=== PATIENT | female | born 1955 | race Caucasian/White ===

== ENCOUNTER → 2024-09-04 07:47 | Outpatient (REF) | payer MEDICARE, OTHER, SELFPAY | LOC: HWWDC 07:47 | PROVIDERS: ATTENDING PHYSICIAN Obstetrics & Gynecology Gynecology; FAMILY PHYSICIAN Student in an Organized Health Care Education/Training Program | DX: Z12.31 Encounter for screening mammogram for malignant neoplasm of breast (principal) | CPT/HCPCS: 77063; 77067 ==

== ENCOUNTER → 2024-11-06 10:26 | Outpatient (REF) | payer MEDICARE, OTHER, SELFPAY ==
[2024-11-06 12:37] LABS: % Basophils 0.3 % (0-2); % Eosinophils 0.8 % (0-6); % Immature Granulocytes 0.2 % (0-0.5); % Lymphocytes 21.9 % (20.5-51.1); % Monocytes 7.9 % (1.7-9.3); % Neutrophils 68.9 % (42.2-75.2); Absolute Eosinophils 0.1 10^3/uL (0-0.7); Absolute Lymphocytes 1.4 10^3/uL (1.2-3.4); Absolute Monocytes 0.5 10^3/uL (0.1-0.6); Absolute Neutrophils 4.5 10^3/uL (1.4-6.5); Hematocrit 43.1 % (37.0-47.0); Hemoglobin 14.4 g/dL (12.0-16.0); Mean Corp Hgb Conc. 33.4 g/dL (33.0-37.0); Mean Corpuscular Volume 92.9 fL (81.0-99.0); Nucleated Red Blood Cells % 0 %; Platelet Count 283 10^3/uL (130-400); Red Blood Cell Count 4.64 10^6/uL (4.20-5.40); Red Cell Dist. Width 11.9 % (11.5-14.5); White Blood Cell Count 6.5 10^3/uL (4.8-10.8)
[2024-11-06 13:01] LABS: ALT (SGPT) 20 U/L (0-35); AST (SGOT) 22 U/L (14-36); Albumin 4.4 g/dl (3.5-5.0); Alkaline Phosphatase 89 U/L (38-126); Blood Urea Nitrogen 13 mg/dl (7-17); Calcium 9.8 mg/dl (8.4-10.2); Carbon Dioxide 28 mmol/L (22-30); Chloride 103 mmol/L (98-107); Glucose 107 mg/dl (70-99); HDL Cholesterol 70 mg/dl; LDL Cholesterol, Calculated 105 mg/dl; Potassium 4.4 mmol/L (3.5-5.1); Sodium 141 mmol/L (135-145); Total Bilirubin 0.4 mg/dl (0.2-1.3); Total Cholesterol 193 mg/dl (50-199); Total Protein 7.4 g/dl (6.3-8.2); Triglyceride 90 mg/dl (10-149); Very Low Density Lipoprotein 18 mg/dl (0-30); eGFR > 60.00
[2024-11-06 13:32] LABS: TSH Reflex To Free T4 1.16 uIU/ml (0.47-4.68)
[2024-11-06 14:03] LABS: Erythrocyte Sed Rate 20 mm/hour (0-20)
[2024-11-06 14:45] LABS: Glycohemoglobin (HgbA1c) 5.9 % (4.0-5.6)
[2024-11-08 14:05] LABS: Rheumatoid Agglutinin Less Than 10 IU (<10 IU)
[2024-11-08 16:33] LABS: Lyme Antibody Screen, EIA Negative (Negative)
[2024-11-09 00:05] LABS: ANA, IgG Reflex to HEp-2 None Detected (None Detected)
[2024-11-09 01:28] LABS: CCP Antibody IgG/IgA 123 Units (0-19)
== END ==
LOC: HWRAD 10:26
PROVIDERS: ATTENDING PHYSICIAN Student in an Organized Health Care Education/Training Program; FAMILY PHYSICIAN Student in an Organized Health Care Education/Training Program
DX: M25.40 Effusion, unspecified joint (principal); M79.641 Pain in right hand; M79.642 Pain in left hand; M79.671 Pain in right foot; M79.672 Pain in left foot; Z82.61 Family history of arthritis; Z00.00 Encounter for general adult medical examination without abnormal findings; J45.30 Mild persistent asthma, uncomplicated; R73.03 Prediabetes
CPT/HCPCS: 36415; 73130; 73630; 80053; 80061; 83036; 84443; 85025; 85652; 86038; 86140; 86200; 86430; 86618

== ENCOUNTER → 2025-01-10 13:43 | Outpatient (REF) | payer MEDICARE, OTHER, SELFPAY ==
[2025-01-10 16:23] LABS: % Basophils 0.4 % (0-2); % Eosinophils 1.2 % (0-6); % Immature Granulocytes 0.3 % (0-0.5); % Monocytes 8.1 % (1.7-9.3); Absolute Eosinophils 0.1 10^3/uL (0-0.7); Absolute Lymphocytes 1.6 10^3/uL (1.2-3.4); Absolute Monocytes 0.6 10^3/uL (0.1-0.6); Absolute Neutrophils 5.5 10^3/uL (1.4-6.5); Hematocrit 42.6 % (37.0-47.0); Hemoglobin 14.1 g/dL (12.0-16.0); Mean Corp Hgb Conc. 33.1 g/dL (33.0-37.0); Mean Corpuscular Hgb 30.3 pg (27.0-31.0); Mean Corpuscular Volume 91.4 fL (81.0-99.0); Mean Platelet Volume 9.8 fL (7.4-10.4); Nucleated Red Blood Cells % 0 %; Platelet Count 308 10^3/uL (130-400); Red Blood Cell Count 4.66 10^6/uL (4.20-5.40); Red Cell Dist. Width 12.2 % (11.5-14.5); White Blood Cell Count 7.8 10^3/uL (4.8-10.8)
[2025-01-10 17:14] LABS: Erythrocyte Sed Rate 14 mm/hour (0-20)
== END ==
LOC: HWLAB 13:43
PROVIDERS: ATTENDING PHYSICIAN Student in an Organized Health Care Education/Training Program
DX: M79.642 Pain in left hand (principal); M25.40 Effusion, unspecified joint
CPT/HCPCS: 36415; 85025; 85652; 86140

== ENCOUNTER → 2025-02-06 08:39 | Outpatient (REF) | payer MEDICARE, OTHER, SELFPAY | LOC: HWRAD 08:39 | PROVIDERS: ATTENDING PHYSICIAN Physician Assistant; FAMILY PHYSICIAN Student in an Organized Health Care Education/Training Program | DX: M05.9 Rheumatoid arthritis with rheumatoid factor, unspecified (principal); M81.0 Age-related osteoporosis without current pathological fracture | CPT/HCPCS: 77080 ==

== ENCOUNTER → 2025-02-18 11:43 | Outpatient (REF) | payer MEDICARE, OTHER, SELFPAY ==
[2025-02-18 17:31] LABS: ALT (SGPT) 25 U/L (0-35); AST (SGOT) 23 U/L (14-36); Albumin 4.1 g/dl (3.5-5.0); Alkaline Phosphatase 85 U/L (38-126); Blood Urea Nitrogen 18 mg/dl (7-17); Calcium 9.8 mg/dl (8.4-10.2); Carbon Dioxide 27 mmol/L (22-30); Chloride 104 mmol/L (98-107); Glucose 114 mg/dl (70-99); Potassium 4.4 mmol/L (3.5-5.1); Sodium 141 mmol/L (135-145); Total Bilirubin 0.5 mg/dl (0.2-1.3); eGFR > 60.00
[2025-02-18 17:40] LABS: % Basophils 0.5 % (0-2); % Eosinophils 1.1 % (0-6); % Immature Granulocytes 0.2 % (0-0.5); % Lymphocytes 24.2 % (20.5-51.1); % Monocytes 11.2 % (1.7-9.3); % Neutrophils 62.8 % (42.2-75.2); Absolute Eosinophils 0.1 10^3/uL (0-0.7); Absolute Lymphocytes 1.4 10^3/uL (1.2-3.4); Absolute Monocytes 0.6 10^3/uL (0.1-0.6); Absolute Neutrophils 3.6 10^3/uL (1.4-6.5); Hematocrit 42.4 % (37.0-47.0); Hemoglobin 14.1 g/dL (12.0-16.0); Mean Corp Hgb Conc. 33.3 g/dL (33.0-37.0); Mean Corpuscular Hgb 30.5 pg (27.0-31.0); Mean Corpuscular Volume 91.8 fL (81.0-99.0); Mean Platelet Volume 10.2 fL (7.4-10.4); Nucleated Red Blood Cells % 0 %; Platelet Count 281 10^3/uL (130-400); Red Blood Cell Count 4.62 10^6/uL (4.20-5.40); White Blood Cell Count 5.7 10^3/uL (4.8-10.8)
[2025-02-18 17:43] LABS: Erythrocyte Sed Rate 12 mm/hour (0-20)
[2025-02-18 18:38] LABS: Hepatitis B Core Ab, Total Negative (Negative); Hepatitis C Antibody Negative (Negative)
[2025-02-18 18:48] LABS: Hepatitis B Surface Antigen Negative (Negative)
== END ==
LOC: HWLAB 11:43
PROVIDERS: ATTENDING PHYSICIAN Physician Assistant; FAMILY PHYSICIAN Student in an Organized Health Care Education/Training Program
DX: K75.9 Inflammatory liver disease, unspecified (principal); M05.9 Rheumatoid arthritis with rheumatoid factor, unspecified; R76.8 Other specified abnormal immunological findings in serum; Z22.7 Latent tuberculosis
CPT/HCPCS: 36415; 80053; 85025; 85652; 86140; 86704; 86803; 87340

== ENCOUNTER → 2025-03-04 08:52 | Outpatient (REF) | payer MEDICARE, OTHER, SELFPAY ==
[2025-03-06 08:49] LABS: Quantiferon Mitogen minus NIL 9.96 IU/mL; Quantiferon NIL 0.04 IU/mL; Quantiferon TB Gold Plus Negative (Negative)
== END ==
LOC: HWLAB 08:52
PROVIDERS: ATTENDING PHYSICIAN Physician Assistant; FAMILY PHYSICIAN Student in an Organized Health Care Education/Training Program
DX: K75.9 Inflammatory liver disease, unspecified (principal); M05.9 Rheumatoid arthritis with rheumatoid factor, unspecified; R76.8 Other specified abnormal immunological findings in serum; Z22.7 Latent tuberculosis
CPT/HCPCS: 36415; 86480

== ENCOUNTER → 2025-08-12 09:16 | Outpatient (REF) | payer MEDICARE, OTHER, SELFPAY ==
[2025-08-12 12:40] LABS: Hematocrit 41.6 % (37.0-47.0); Hemoglobin 14.2 g/dL (12.0-16.0); Mean Corp Hgb Conc. 34.1 g/dL (33.0-37.0); Mean Corpuscular Volume 91.4 fL (81.0-99.0); Nucleated Red Blood Cells % 0 %; Platelet Count 263 10^3/uL (130-400); Red Cell Dist. Width 12.1 % (11.5-14.5)
[2025-08-12 13:29] LABS: ALT (SGPT) 16 U/L (0-35); AST (SGOT) 19 U/L (14-36); Albumin 4.2 g/dl (3.5-5.0); Alkaline Phosphatase 70 U/L (38-126); Blood Urea Nitrogen 11 mg/dl (7-17); Calcium 9.7 mg/dl (8.4-10.2); Carbon Dioxide 26 mmol/L (22-30); Chloride 106 mmol/L (98-107); Glucose 113 mg/dl (70-99); Potassium 4.6 mmol/L (3.5-5.1); Sodium 139 mmol/L (135-145); Total Protein 7.2 g/dl (6.3-8.2); eGFR > 60.00
[2025-08-12 13:31] LABS: C-Reactive Protein 12.20 mg/L (0.0-10.00)
== END ==
LOC: HWLAB 09:16
PROVIDERS: ATTENDING PHYSICIAN Student in an Organized Health Care Education/Training Program; FAMILY PHYSICIAN Student in an Organized Health Care Education/Training Program
DX: M05.9 Rheumatoid arthritis with rheumatoid factor, unspecified (principal); M79.641 Pain in right hand; M79.642 Pain in left hand; M79.89 Other specified soft tissue disorders; M81.0 Age-related osteoporosis without current pathological fracture; R76.8 Other specified abnormal immunological findings in serum
CPT/HCPCS: 36415; 80053; 85025; 85652; 86140

== ENCOUNTER → 2025-09-05 07:10 | Outpatient (REF) | payer MEDICARE, OTHER, SELFPAY | LOC: HWWDC 07:10 | PROVIDERS: ATTENDING PHYSICIAN Obstetrics & Gynecology Gynecology; FAMILY PHYSICIAN Student in an Organized Health Care Education/Training Program | DX: Z12.31 Encounter for screening mammogram for malignant neoplasm of breast (principal) | CPT/HCPCS: 77063; 77067 ==